=== PATIENT | male | born 1955 | race Two or more races ===

== ENCOUNTER 2017-03-11 06:46 | Observation (INO) | payer OTHER ==
[2017-03-11 07:10] LABS: BASO % 1.2 % (0-2); BASO ABSOLUTE COUNT 0.1 tho/cmm (0.0-0.2); EOS % 7.4 % (0-7); EOSINOPHIL ABSOLUTE COUNT 0.5 tho/cmm (0.0-0.7); HGB-HEMOGLOBIN 12.8 gm/dl (13.5-17.0); IMMATURE GRANULOCYTES ABSOLUTE 0.01 tho/cmm (0-0.03); IMMATURE GRANULOCYTES PERCENT 0.1 % (0-0.3); LYMPH % 29.3 % (20-45); MCH (MEAN CORPUSCULAR HGB) 26.8 pg (28.0-32.0); MCHC MEAN CORPUSCULAR HGB CONC 32.8 % (32.0-36.0); MCV (MEAN CELL VOLUME) 81.6 fl (82.0-96.0); MEAN PLATELET VOLUME 8.6 cmc (9.4-12.4); MONO % 9.9 % (0-12); MONOCYTE ABSOLUTE COUNT 0.7 tho/cmm (0.0-1.2); NEUTROPHIL ABSOLUTE COUNT 3.5 tho/cmm (1.6-8.0); NEUTROPHIL-AUTOMATED 3.5 tho/cmm (1.6-8.0); NEUTROPHILS % 52.1 % (40-80); PLATELET COUNT 391 tho/cmm (150-450); RED BLOOD COUNT 4.78 mil/cmm (4.40-5.70); RED CELL DISTRIBUTION WIDTH 13.9 % (12.4-16.4); WHITE BLOOD COUNT 6.8 tho/cmm (4.0-10.0)
[2017-03-11 07:24] LABS: ANION GAP 17 mmol/L (0-20); BLOOD UREA NITROGEN 14 mg/dl (6-24); CALCIUM 9.1 mg/dl (8.5-10.5); CARBON DIOXIDE-VENOUS 23 mmol/L (22-32); CHLORIDE 107 mmol/l (96-110); CREATININE 1.08 mg/dl (0.60-1.30); GLUCOSE 150 mg/dL (70-110); SODIUM 143 mmol/L (135-145); eGFR VALUE FOR BLACK 85 mL/Min
[2017-03-11] MEDS ORDERED: ZOCOR80 M1 PO (09:15)
[2017-03-11] MEDS ORDERED: VASOTEC20 M2 PO (09:15)
[2017-03-11] MEDS ORDERED: OMEPRAZOLE20 M3 PO (09:36)
[2017-03-11] MEDS ORDERED: LOPRESSOR50 M1 PO (09:36)
[2017-03-11] MEDS ORDERED: HYDROCHLOROTHIA25 M1 PO (09:36)
[2017-03-11] MEDS ORDERED: ETODOLAC400 MG/TAB PO (09:36)
[2017-03-11] MEDS ORDERED: GLUCOPHAGE500 M3 PO (09:36)
[2017-03-11] MEDS ORDERED: SAW PALMETTO C1 EACH PO (09:37)
[2017-03-11] MEDS ORDERED: ASPIRIN81 M1 PO (09:37)
[2017-03-11] MEDS ORDERED: FISH OIL 11000 MG/CA PO (09:37)
[2017-03-11] MEDS ORDERED: LEVITRA20 M1 PO (09:37)
[2017-03-11] MEDS ORDERED: MULTIVITAMINS1 EAC6 PO (09:42)
[2017-03-11] MEDS ORDERED: CALCIUM-MAGNES1 EA11 PO (09:42)
[2017-03-11 10:34] LABS: IRON 24 ug/dl (49-181); IRON BINDING CAPACITY 415 ug/dl (250-450)
[2017-03-11 10:39] LABS: FERRITIN 7 ng/ml (22-388)
[2017-03-12] MEDS ORDERED: NORVASC10 M2 PO (11:54)
== END 2017-03-12 12:32 ==
LOC: EDMED 06:46 → EMR2 10:26 → CAR1 17:24
PROVIDERS: Emergency Medicine; Physician Assistant; ADMIT Internal Medicine Interventional Cardiology
DX: I35.1 Nonrheumatic aortic (valve) insufficiency (principal); I38 Endocarditis, valve unspecified; R79.89 Other specified abnormal findings of blood chemistry; I25.10 Atherosclerotic heart disease of native coronary artery without angina pectoris; I10 Essential (primary) hypertension; E78.5 Hyperlipidemia, unspecified; Z87.891 Personal history of nicotine dependence; E11.9 Type 2 diabetes mellitus without complications; Z88.1 Allergy status to other antibiotic agents; Z79.82 Long term (current) use of aspirin; Z98.890 Other specified postprocedural states; Z79.899 Other long term (current) drug therapy
CPT/HCPCS: A9500; C8929; G0378; J0360; J2785; J7030